=== PATIENT | male | born 1960 | race Caucasian/White ===

== ENCOUNTER → 2024-03-14 08:27 | Outpatient (REF) | payer BC, SELFPAY | LOC: RAD 08:27 | PROVIDERS: ATTENDING PHYSICIAN Emergency Medicine | DX: J22 Unspecified acute lower respiratory infection (principal) | CPT/HCPCS: 71046 ==

== ENCOUNTER 2024-07-30 10:55 | Emergency (ER) | payer BC, SELFPAY ==
[2024-07-30 10:58] VITALS: BP 119/79
--- NOTE | 2024-07-30 12:32 | ED.GENMED ---
History of Present Illness
General
Chief Complaint: Back Pain
Source: patient
Exam Limitations: none
Time Seen by Provider: 07/30/24 12:12
History of Present Illness
History of Present Illness:
See MDM
Past History
Past History
ED Past Medical History: Other (Back pain)
ED Past Surgical History: None
Social History
Tobacco: Non-smoker
Alcohol: None
Phy Exam
Physical Exam
Physical Exam:
See MDM
Course
Orders/Labs/Results
Orders:
Orders
07/30/24 12:30
Dexamethasone Pf [Decadron] 10 mg PO NOW STA
HYDROmorphone [Dilaudid] 1 mg IM NOW STA
Ketorolac [Toradol] 30 mg IM NOW STA
Vital Signs
Initial and Last Documented VS:
Initial Vital Signs
Temp Pulse Resp BP Pulse Ox
98 F 101 18 119/79 96
07/30/24 10:58 07/30/24 10:58 07/30/24 10:58 07/30/24 10:58 07/30/24 10:58
Last Documented Vital Signs
Temp Pulse Resp BP Pulse Ox
98 F 101 18 119/79 96
07/30/24 10:58 07/30/24 10:58 07/30/24 10:58 07/30/24 10:58 07/30/24 10:58
MDM/Problems Addressed
Differential Diagnosis Includes:
HPI and MDM Narrative:
63-year-old male presenting with right-sided back pain. This is an ongoing issue that happens intermittently every few years. This goes back to an injury he had several years back. Based on his prior back pain episodes, patient has followed his
routine follow-up with chiropractor and PCP and NSAIDs. However, symptoms are not improving and they are lasting longer than normal. He denies any bowel or bladder issues. He is able to ambulate. He complains of pain rather than actual weakness
or numbness. He has had negative workups in the past which include x-rays
Patient did call his orthopedist and has appointment scheduled for next week. Given no injury, we discussed low utility of lumbar x-ray which patient agrees with. Patient states he is going to talk to his primary care doctor about obtaining
outpatient MRI
Will start steroids and NSAIDs and muscle relaxants.
Physical exam
General: Well appearing and non-toxic
HEENT: protecting airway
Neck: appears supple
CV: No evidence of cyanosis
Resp: No accessory muscle use
Abd: Non-distended
Back: Tenderness to right sacroiliac region
Extremities: No deformities. Patellar reflexes +2. Distal legs neurovascularly intact
Neuro: alert
Psych: Normal affect
Skin: Intact
Problems Addressed including Acute and Chronic Conditions affecting care:
1. Back pain
Acuity: acute on chronic
Prognosis: stable
Details: Discussed likely spasm versus disc herniation. Will start steroids and NSAIDs. He has orthopedic evaluation next week. Discussed outpatient MRI
Differential Diagnosis (but not limited to):back spasm, herniated disc
Testing considered: lumbar xray
Drug therapy (if applicable): OTC meds, please see d/c instruction regarding Rx drugs
Amount and/or Complexity of Data Reviewed
Clinical info obtained from: Patient and
External data reviewed: N/A
Labs I independently reviewed (but not limited to): N/A
Radiology: N/A
Pulse Ox: not hypoxic
EKG independently reviewed: N/A
Manager Lighting: N/A
Critical Care: N/A
Risk of Complication:
Social Determinants of health: Good social support
Discussed with other providers: N/A
Escalation of Care includes Admit/Obs: After being observed in the Emergency Department, pt stable for discharge.
Occasional wrong word or 'sound a like' substitutions may have occurred due to the inherent limitations of voice recognition software. Read the chart carefully and recognize, using context, where substitutions have occurred.
*Critical Care Note
Total Time (30-74mins, 75-104mins- exclusive of procedures): Not Applicable
ED Attending Note
-
Portions of this chart may have been created with voice recognition software.� Occasional wrong word or��sound alike� substitutions may have occurred due to the inherent limitations of voice recognition software.
Discharge Plan
Departure
Patient Disposition: Home (Routine Discharge)
Date of Disposition: 07/30/24
Time of Disposition: 12:35
Patient with high blood pressure during this ER visit?: No
Discharge Problem:
Back pain
Instructions: Low Back Pain (DC)
Prescriptions:
New
prednisone 20 mg tablet
40 mg PO DAILY Qty: 10 0RF
diclofenac potassium 50 mg tablet
50 mg PO BID Qty: 20 0RF
oxycodone 5 mg tablet
5 mg PO Q8H PRN (Reason: Pain) Qty: 14 0RF
metaxalone 800 mg tablet
800 mg PO TID PRN (Reason: muscle pain) Qty: 14 0RF
Referrals:
Kori Sim MD [Family Provider] -
Activity Restrictions/Additional Instructions:
Please return for any worsening symptoms.
You may return at any time if you have further concerns.
Please follow up with your doctor at the first available appointment, preferably this week. Please discuss obtaining outpatient MRI.
Please keep your orthopedic appointment.
Thank you for choosing [facility].
Interventions
Interventions:
*Risk Screen - Suicide Last Done: 07/30/24 10:58
*General Assessment Last Done: 07/30/24 10:58
*Neglect/Abuse Screening Last Done: 07/30/24 10:58
Discharge Date and Time
Print Language: URDU
[2024-07-30 12:33] VITALS: BMI 27.8
[2024-07-30] MEDS: DILAUDID 1 MG IM (12:37)
[2024-07-30] MEDS: DECADRON 10 MG PO (12:39)
[2024-07-30] MEDS: TORADOL 30 MG IM (12:39)
[2024-07-30 12:57] VITALS: BP 123/100
== END 2024-07-30 13:00 | disposition home or self-care (01) ==
LOC: EMR 10:55
PROVIDERS: EMERGENCY PHYSICIAN Student in an Organized Health Care Education/Training Program; FAMILY PHYSICIAN Emergency Medicine
DX: M54.9 Dorsalgia, unspecified (principal)
CPT/HCPCS: 99284; 96372 ×2

== ENCOUNTER → 2025-03-19 14:51 | Outpatient (REF) | payer BC, SELFPAY | LOC: DHSLP 14:51 | PROVIDERS: ATTENDING PHYSICIAN Internal Medicine Critical Care Medicine; FAMILY PHYSICIAN Emergency Medicine | DX: G47.30 Sleep apnea, unspecified (principal); R06.83 Snoring | CPT/HCPCS: 95800 ==

== ENCOUNTER 2025-09-06 06:18 | Day surgery (SDC) | payer BC, SELFPAY | END 2025-09-06 14:10 | disposition home or self-care (01) | LOC: GI 06:18 | PROVIDERS: ATTENDING PHYSICIAN Internal Medicine Gastroenterology | DX: Z12.11 Encounter for screening for malignant neoplasm of colon (principal); K57.30 Diverticulosis of large intestine without perforation or abscess without bleeding; K64.8 Other hemorrhoids; R12 Heartburn; K44.9 Diaphragmatic hernia without obstruction or gangrene; K20.0 Eosinophilic esophagitis; K31.89 Other diseases of stomach and duodenum; D12.2 Benign neoplasm of ascending colon; D12.5 Benign neoplasm of sigmoid colon; K63.5 Polyp of colon; K62.1 Rectal polyp; K29.50 Unspecified chronic gastritis without bleeding; Z86.0100 Personal history of colon polyps, unspecified | CPT/HCPCS: 45380; 43239; 88305; 88342 ==